=== PATIENT | male | born 1965 | race American Indian/Alaskan Native ===

== ENCOUNTER 2016-06-29 01:07 | Emergency (ER) | payer SELFPAY | END 2016-06-29 01:10 | disposition left against medical advice (07) | LOC: ED 01:07 | DX: R51 Headache (principal); M25.512 Pain in left shoulder; V89.2XXA Person injured in unspecified motor-vehicle accident, traffic, initial encounter; Y92.410 Unspecified street and highway as the place of occurrence of the external cause; Y93.89 Activity, other specified; Y99.8 Other external cause status; Z53.21 Procedure and treatment not carried out due to patient leaving prior to being seen by health care provider ==

== ENCOUNTER 2017-03-01 18:53 | Emergency (ER) | payer SELFPAY ==
[2017-03-01 19:30] VITALS: BP 140/87
[2017-03-01] MEDS ORDERED: MOTRIN PO ONE (19:33)
--- NOTE | 2017-03-01 20:31 | Cat Scan Report ---
FINAL REPORT EXAM: CT HEAD/BRAIN WO CON HISTORY: headache TECHNIQUE: CT head without contrast PRIORS: None. FINDINGS: No acute intra-axial or extra-axial hemorrhage is identified. There is no evidence of midline shift or mass effect. The ventricles and sulci are within normal limits. Junior-white matter differentiation is intact. No acute parenchymal abnormalities seen. Bony calvarium is grossly intact. Visualized portions of the mastoids and paranasal sinuses are unremarkable. IMPRESSION: Negative CT head
--- NOTE | 2017-03-01 21:33 | XRay Report ---
FINAL REPORT PROCEDURE: XR SPINE LUMBOSACRAL 2-3V TECHNIQUE: Lumbar spine radiographs, including AP, lateral, bilateral oblique, flexion, and extension views. CPT 12663 HISTORY: pain fell last wk on ice COMPARISON: No prior studies are available for comparison. FINDINGS: Alignment in neutral position: Normal . Vertebral body movement with flexion and extension: Physiologic . Vertebral body heights/Disk spaces: Normal . Fracture(s): None . Facets: Normal . Bone mineralization: Normal . IMPRESSION: Paul Examination.
--- NOTE | 2017-03-01 21:34 | XRay Report ---
FINAL REPORT PROCEDURE: XR SHOULDER 2+V RT TECHNIQUE: Right shoulder radiographs including AP views in internal and external rotation and abduction. CPT 10589 HISTORY: shoulder pain...fell on ice COMPARISON: No prior studies are available for comparison. FINDINGS: Fracture (s) and/or Dislocation(s): None . Joint space(s): Normal . Soft tissues: Normal . Bone mineralization: Normal . Foreign bodies: None . IMPRESSION: Normal Examination
[2017-03-01] MEDS ORDERED: FLEXERIL PO ONE (23:53)
[2017-03-01] MEDS ORDERED: TORADOL IM ONE (23:53)
--- NOTE | 2017-03-02 00:18 | Emergency Department Report ---
ED Back Pain/Injury HPI - General Chief Complaint: Fall Stated Complaint: HEAD,BACK,SHOULDER INJURY Time Seen by Provider: 03/01/17 23:51 Source: patient Limitations: No Limitations - History of Present Illness Initial Comments: Patient is a 52-year-old -[place] male presents status post ground- level fall week ago patient states he slipped on ice landing on his back and shoulder now at 4/10 low back and right shoulder pain described as aching pain exacerbated by prolonged standing and movement bending twisting and lifting there is no numbness no tingling or paralysis patient remains ambulatory per patient there is no loss or decrease in bowel or bladder function MD Complaint: back pain Onset/Timin -: week(s) Similar Symptoms Previously: No Place: work Radiation: left leg Severity: moderate Severity scale (0 -10): 4 Quality: sharp, aching Consistency: intermittent Improves With: other (rest) Worsens With: movement, walking, other (bending or twisting ) Context: fall Associated Symptoms: denies: confusion, weakness, chest pain, numbness, difficulty walking, cough, difficulty urinating, diaphoresis, incontinence, fever/chills, constipation, headaches, abdominal pain, loss of appetite, malaise , nausea/vomiting, rash, seizure, shortness of breath, syncope - Related Data Previous Rx's Medication Instructions Recorded Last Taken Type Cyclobenzaprine [Flexeril] 10 mg PO BID PRN #20 tablet 03/02/17 Unknown Rx Menthol/Camphor [[place] 1 applicatio TP BID PRN #1 tub 03/02/17 Unknown Rx Ointment] Naproxen 500 mg PO BID PRN #30 tablet 03/02/17 Unknown Rx Allergies Allergy/AdvReac Type Severity Reaction Status Date / Time No Known Allergies Allergy Verified 03/01/17 23:56 ED Review of Systems ROS: Stated complaint: HEAD,BACK,SHOULDER INJURY Other details as noted in HPI Constitutional: denies: chills, fever Eyes: denies: eye pain, eye discharge, vision change ENT: denies: ear pain, throat pain Respiratory: denies: cough, shortness of breath, wheezing Cardiovascular: denies: chest pain, palpitations Endocrine: no symptoms reported Gastrointestinal: denies: abdominal pain, nausea, diarrhea Genitourinary: denies: urgency, dysuria Musculoskeletal: back pain, arthralgia, myalgia Skin: denies: rash, lesions Neurological: denies: headache, weakness, numbness, paresthesias, confusion, abnormal gait, vertigo Psychiatric: denies: anxiety, depression Hematological/Lymphatic: denies: easy bleeding, easy bruising ED Past Medical Hx - Past Medical History Hx Hypertension: Yes - Surgical History Past Surgical History?: No - Social History Smoking Status: Never Smoker Substance Use Type: None - Medications Home Medications: Home Medications Medication Instructions Recorded Confirmed Last Taken Type Cyclobenzaprine [Flexeril] 10 mg PO BID PRN #20 tablet 03/02/17 Unknown Rx Menthol/Camphor [[place] 1 applicatio TP BID PRN #1 tub 03/02/17 Unknown Rx Ointment] Naproxen 500 mg PO BID PRN #30 tablet 03/02/17 Unknown Rx ED Physical Exam - General Limitations: No Limitations General appearance: alert, in no apparent distress - Head Head exam: Present: atraumatic, normocephalic - Eye Eye exam: Present: normal appearance - ENT ENT exam: Present: mucous membranes moist - Neck Neck exam: Present: normal inspection. Absent: full ROM, lymphadenopathy, thyromegaly - Respiratory Respiratory exam: Present: normal lung sounds bilaterally. Absent: respiratory distress, wheezes, rhonchi, stridor, chest wall tenderness - Cardiovascular Cardiovascular Exam: Present: regular rate, normal rhythm, normal heart sounds. Absent: systolic murmur, diastolic murmur, rubs, gallop - GI/Abdominal GI/Abdominal exam: Present: normal bowel sounds. Absent: distended, tenderness , guarding, rebound, rigid, organomegaly, mass, bruit, pulsatile mass, hernia - Rectal Rectal exam: Present: deferred - Extremities Exam Extremities exam: Present: normal inspection, full ROM, normal capillary refill. Absent: tenderness (right lateral shoulder ), pedal edema, joint swelling, calf tenderness - Expanded Upper Extremity Exam Right Shoulder Exam: Present: normal inspection, full ROM (shoulder drop and open can intact typing checker equal bilat there is no swelling no ecchymosis no deformity ), tenderness (right posterior lateral shoulder muscle pain no swelling ecchymosis no deformity). Absent: swelling, abrasion, laceration, ecchymosis, crepidus, dislocation, erythema, tenderness over AC joint Upper Arm exam: Present: normal inspection, full ROM. Absent: tenderness Elbow exam: Present: normal inspection, full ROM. Absent: tenderness Forearm Wrist exam: Present: normal inspection, full ROM. Absent: tenderness, swelling Hand Wrist exam: Present: normal inspection, full ROM. Absent: tenderness, swelling Neuro motor exam: Present: wrist extension intact, thumb opposition intact, thumb IP flexion intact, thumb adduction intact, fingers 2-5 abduction intact Neurosensory exam: Present: 2-point discrimination, radial nerve intact, ulnar nerve intact, median nerve intact Vascular: Present: vascular compromise, normal capillary refill, radial pulse, brachial pulse, ulnar pulse. Absent: Pallo, pulse deficit radial art, pulse deficit ulnar art, pulse deficit brachial art - Back Exam Back exam: Present: normal inspection, full ROM, tenderness, muscle spasm, paraspinal tenderness (there is no posterior vertebral point tenderness mild paraspinus muscle tenderness pos stright leg raise bilat, there is no numbness no weakness rom restricted by pain ). Absent: CVA tenderness (R), CVA tenderness (L), vertebral tenderness, rash noted - Expanded Back Exam Expanded Back exam: Absent: saddle anesthesia Back exam: Positive Straight Leg Raise: Left, Right - Neurological Exam Neurological exam: Present: alert, oriented X3, CN II-XII intact, normal gait, reflexes normal - Psychiatric Psychiatric exam: Present: normal affect, normal mood - Skin Skin exam: Present: warm, dry, intact, normal color. Absent: rash ED Course Vital Signs 03/01/17 19:24 Temperature 99.1 F Pulse Rate 58 L Respiratory 18 Rate Blood Pressure 140/87 O2 Sat by Pulse 100 Oximetry ED Medical Decision Making - Radiology Data Radiology results: report reviewed, image reviewed CT head normal no fracture no hemorrhage, right should xray: no fracture no soft tissue abnormalities, lumbar: normal no fracture no soft tissue abnormalities. - Medical Decision Making Patient is a 52-year-old -[place] male presents status post ground- level fall week ago patient states he slipped on ice landing on his back and shoulder now at 4/10 low back and right shoulder pain described as aching pain exacerbated by prolonged standing and movement bending twisting and lifting there is no numbness no tingling or paralysis patient remains ambulatory per patient there is no loss or decrease in bowel or bladder function exam patient appears well in no acute distress and ambulatory gait is steady right shoulder exam normal no no swelling no deformity range of motion intact no restriction shoulder drop open can intact typing checker equal bilateral 5/5 low back exam no deformity no swelling no ecchymosis range of motion restricted by pain subjective positive straight leg bilaterally there is no posterior vertebral point tenderness mild paraspinous tenderness to deep palpation there is no weakness no numbness no paresthesias CT head normal x-ray right shoulder normal no fracture no soft tissue abnormality lumbar spine x-ray normal no fracture no soft tissue abnormality plan NSAIDs and muscle relaxants when necessary moist heat therapy low back and shoulder exercises and follow with primary care doctor in 2-3 days patient verbalizes understanding and agreement with discharge plan will be discharged home in stable condition at this time. Critical care attestation.: If time is entered above; I have spent that time in minutes in the direct care of this critically ill patient, excluding procedure time. ED Disposition Clinical Impression: Fall Qualifiers: Encounter type: initial encounter Qualified Code(s): W19.XXXA - Unspecified fall, initial encounter Right shoulder strain Qualifiers: Encounter type: initial encounter Qualified Code(s): S46.911A - Strain of unspecified muscle, fascia and tendon at shoulder and upper arm level, right arm , initial encounter Low back strain Qualifiers: Encounter type: initial encounter Qualified Code(s): S39.012A - Strain of muscle, fascia and tendon of lower back, initial encounter Disposition: TO HOME OR SELFCARE Is pt being admited?: No Does the pt Need Aspirin: No Condition: Good Instructions: Low Back Strain (ED), Core Strengthening Exercises (GEN), Shoulder Sprain (ED) Prescriptions: Cyclobenzaprine [Flexeril] 10 mg PO BID PRN #20 tablet PRN Reason: Muscle Spasm Menthol/Camphor [[place] Ointment] 1 applicatio TP BID PRN #1 tub PRN Reason: Pain Naproxen 500 mg PO BID PRN #30 tablet PRN Reason: Pain Referrals: JOANN WILKERSON MD [Staff Physician] - 3-5 Days Forms: Work/School Release Form(ED) Time of Disposition: 00:32
== END 2017-03-02 00:15 | disposition home or self-care (01) ==
LOC: ED 18:53
DX: S46.911A Strain of unspecified muscle, fascia and tendon at shoulder and upper arm level, right arm, initial encounter (principal); S39.012A Strain of muscle, fascia and tendon of lower back, initial encounter; I10 Essential (primary) hypertension; W00.0XXA Fall on same level due to ice and snow, initial encounter; Y93.89 Activity, other specified; Y92.89 Other specified places as the place of occurrence of the external cause; Y99.0 Civilian activity done for income or pay; Y92.69 Other specified industrial and construction area as the place of occurrence of the external cause
CPT/HCPCS: 70450; 72100; 73030; 99284; J1885